=== PATIENT | male | born 1960 | race Caucasian/White ===

== ENCOUNTER 2016-04-16 13:43 | Emergency (ER) | payer OTHER ==
[~2016-04-16] VITALS: Ht 165.1 cm; Wt 66.7 kg
[2016-04-16 13:43] VITALS: BP 116/71; PULSE 66; RESP 19; TEMP 98.2; O2SAT 97
--- NOTE | 2016-04-16 13:50 | NUR ---
Patient in stable condition, alert and oriented x4. States has always had problems with feeling dizzy, believes may have vertigo. Denies any feeling faint or passing out. States feels like room in spinning. Denies any visual problems. States has generalized headache. No other complaints/injuries per patient or noted.
--- NOTE | 2016-04-16 13:50 | NUR ---
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 States that problem has been getting worse recently. Patient is able to complete sentences without trouble but breathing appears labored. Also states that she was recently completed a Zpack for persitent productive cough. Non-productive cough noted at this time. No other complaints/injuries per patient or noted.
--- NOTE | 2016-04-16 13:51 | NUR ---
Dr Bryson at bedside
[2016-04-16] MEDS ORDERED: MECLIZINE HCL 25 MG TABLET (ANITVERT) PO ONE (14:15)
--- NOTE | 2016-04-16 15:00 | NUR ---
Pt laying in bed on stable condition, skin pink and warm, VSS.
[2016-04-16 15:56] VITALS: BP 116/71; PULSE 66; RESP 19; TEMP 98.2; O2SAT 97
--- NOTE | 2016-04-16 15:56 | NUR ---
Patient given written and verbal discharge instructions and verbalizes understanding. ER MD discussed with patient the results and treatment provided. Given copies of tests performed in ER. Patient in stable condition. ID arm band removed. Rx of Meclizine given. Patient educated on pain management and to follow up with PMD. Pain Scale 0/10 . Opportunity for questions provided and answered.
== END 2016-04-16 15:56 | disposition home or self-care (01) ==
LOC: SED 13:43
DX: H81.10 Benign paroxysmal vertigo, unspecified ear (principal); Z88.1 Allergy status to other antibiotic agents
CPT/HCPCS: 99282; J8597